=== PATIENT | female | born 1955 | race Caucasian/White ===

== ENCOUNTER → 2017-06-03 | Outpatient (CLI) | payer OTHER ==
[~2017-06-03] MED LIST: BACTRIM DS TAB1 EACH PO; GABAPENTIN300 MG PO; OMEPRAZOLE40 MG PO; PHENERGAN25 M3; Z.0.TAMIFLU75 MG; ZOLOFT50 MG PO
--- NOTE | 2017-06-03 17:25 | Diagnostic Imaging Report ---
PROCEDURE: CT CHEST WITHOUT CONTRAST CT scan of the chest WITHOUT intravenous contrast, using standard protocol. TECHNIQUE: The chest was scanned utilizing a multidetector helical scanner from the apex to the level of the adrenal glands. No IV contrast was administered per physician's request. Coronal and sagittal multiplanar reformations were obtained. COMPARISON: Patients [facility] [place], , CHEST 2 VIEWS, 12/29/2016, 14:25. The chest x-ray in question is not available for comparison. INDICATIONS: SPOT ON LUNG XRAY, COUGH, history of breast cancer FINDINGS: Lines/tubes: None. Lungs and Airways: Focal consolidation, measuring 1.4 x 1.2 cm in the lateral right upper lobe (series 3, image 51), which measures 1.4 x 1.2 x 0.8 cm and has slightly spiculated appearance and a central bronchogram. There is a adjacent wedge-shaped subpleural opacity (series 3 per image 48 and coronal image 43). Linear scarring in the anterior right middle lobe (series 3, image 85, and sagittal image 28). No pulmonary nodules, masses, or other consolidation. Airways are clear, without any bronchial lesions. Pleura: No effusion, or pneumothorax. Heart and mediastinum: Thyroid is unremarkable. Heart size is normal. No pericardial effusion. Aorta is non-aneurysmal. Main pulmonary artery is normal in caliber. Lymph nodes: No mediastinal, hilar, or axillary adenopathy. Abdomen: Limited views of the upper abdomen show no abnormality within the visualized liver, spleen, pancreas, or kidneys. The adrenal glands are unremarkable Bones: No aggressive lytic lesion. Right breast osteopathic resident in place. Left breast implant IMPRESSION: 1. focal consolidation in the lateral right upper lobe (corresponds to abnormal area in chest x-ray, per history provided by referring clinician). This may represent a focal infectious process/pneumonia, in the setting of cough. A primary lung neoplasm is less likely, however, a consideration if the findings are persistent after appropriate therapy. Metastatic breast cancer is a less likely consideration given lack of other lung findings less pulmonary nodules. Recommend followup chest, PA and lateral 4-6 weeks after appropriate treatment to document resolution or stability. A followup low dose, nodule protocol chest CT may be obtained at the recommended time above if the findings persist on chest x-ray. Nuno Santos M.D. Dictated by: Nuno Santos M.D. on 06/03/2017 at 17:24 Electronically approved by: Nuno Santos M.D. on 06/03/2017 at 17:24
== END ==
LOC: CT 15:36
PROVIDERS: ATTEND Family Medicine
DX: R93.8 Abnormal findings on diagnostic imaging of other specified body structures (principal); Z85.3 Personal history of malignant neoplasm of breast
CPT/HCPCS: 71250

== ENCOUNTER → 2017-07-02 | Outpatient (CLI) | payer OTHER ==
--- NOTE | 2017-07-02 17:30 | Diagnostic Imaging Report ---
PROCEDURE: CT CHEST WITHOUT CONTRAST CT scan of the chest WITHOUT intravenous contrast, using standard protocol. TECHNIQUE: The chest was scanned utilizing a multidetector helical scanner from the apex to the level of the adrenal glands. No IV contrast was administered per physician request. Coronal and sagittal multiplanar reformations were obtained. COMPARISON: CT chest 06/03/2017. INDICATIONS: ABNORMAL CXR FINDINGS: Lines/tubes: None. Lungs and Airways: Focal consolidation, measuring 1.0 x 1.3 cm in the lateral upper lobe (series 3 image 54). The main area has slightly decreased in size with slight increased size along the lateral aspect. Previously 1.4 x 1.2 cm. Persistent mild spiculated appearance with central air bronchogram. Similar appearing lesions in the right lung apex. Linear scarring in the anterior right middle lobe (series 3, image 90). No pulmonary nodules, masses, or other consolidation. Airways are clear, without any bronchial lesions. Pleura: The pleural spaces are clear. Heart and mediastinum: The thyroid gland is normal. No significant mediastinal, hilar or axillary lymphadenopathy is seen. The heart and pericardium are within normal limits. Main pulmonary arteries normal in caliber. Soft tissues: Normal. Abdomen: Limited views of the upper abdomen show no abnormality within the visualized liver, spleen, pancreas, or kidneys. The adrenal glands are normal. Bones: The visualized bony thorax is within normal limits. Right breast national coverage specialist in place. Left breast implant IMPRESSION: Grossly stable focal consolidation in the lateral right upper lobe (corresponds to abnormal area in chest x-ray, per history provided by referring clinician). This may represent a focal infectious process/pneumonia, in the setting of cough. A primary lung neoplasm is less likely, however, a consideration if the findings are persistent after appropriate therapy. Additional consideration would be previous radiation therapy/radiation pneumonitis. Metastatic breast cancer is a less likely consideration given lack of other lung findings less pulmonary nodules. Recommend followup chest, PA and lateral 4-6 weeks after appropriate treatment to document resolution or stability. A followup low dose, nodule protocol chest CT may be obtained at the recommended time above if the findings persist on chest x-ray. Dictated by: Randell Francois M.D. on 07/02/2017 at 17:29 Electronically approved by: Randell Francois M.D. on 07/02/2017 at 17:29
== END ==
LOC: CT 16:06
PROVIDERS: ATTEND Family Medicine
DX: R93.8 Abnormal findings on diagnostic imaging of other specified body structures (principal); Z85.3 Personal history of malignant neoplasm of breast
CPT/HCPCS: 71250